=== PATIENT | male | born 1955 | race Two or more races ===

== ENCOUNTER 2025-03-13 11:00 | Inpatient (IN) | payer OTHER ==
[~2025-03-13] VITALS: Ht 175.3 cm; Wt 77.1 kg
[2025-03-13 13:01] VITALS: BP 119/74
[2025-03-21] MEDS ORDERED: METRONIDAZOLE/SODIUM CHLORIDE 500 MG/100 ML PIGGYBACK IV ONE (09:07)
[2025-03-21] MEDS ORDERED: CEFTRIAXONE SODIUM 2,000 MG VIAL ONE (09:07)
[2025-03-21] MEDS ORDERED: BUPIVACAINE HCL/MPF 0.5% 30ML VIAL ONE (15:27)
[2025-03-21] MEDS ORDERED: LIDOCAINE HCL 1%/EPINEPHRINE 20ML VIAL IJ ONE (15:28)
[2025-03-21] MEDS ORDERED: 0.9 % SODIUM CHLORIDE 1,000 ML IV SCH (17:00)
[2025-03-21] MEDS ORDERED: OxyCODONE HCL 5 MG TABLET (ROXICODONE) PO PRN (17:00)
[2025-03-21] MEDS ORDERED: POLYETHYLENE GLYCOL 3350 17 GM BLIST.PACK PO SCH (17:00)
[2025-03-21] MEDS ORDERED: DEXTROSE 50 % IN WATER 0.5 G/ML VIAL IV PRN (17:00)
[2025-03-21] MEDS ORDERED: GABAPENTIN 300 MG CAPSULE PO SCH (17:00)
[2025-03-21] MEDS ORDERED: METRONIDAZOLE/SODIUM CHLORIDE 500 MG/100 ML PIGGYBACK IV SCH (17:00)
[2025-03-21] MEDS ORDERED: HYOSCYAMINE SULFATE 0.125 MG TAB.SUBL SL SCH (17:00)
[2025-03-21] MEDS ORDERED: ONDANSETRON HCL 2 MG/ML VIAL IV PRN (17:00)
[2025-03-21] MEDS ORDERED: MORPHINE SULFATE 4 MG/ML CARTRIDGE IV PRN (17:00)
[2025-03-21] MEDS ORDERED: SUGAMMADEX SODIUM 200 MG/2 ML VIAL IV ONE (18:59)
[2025-03-21] MEDS ORDERED: ACETAMINOPHEN 500 MG GEL..CAP PO SCH (20:00)
[2025-03-21] MEDS ORDERED: FAMOTIDINE/PF 20 MG/2 ML VIAL IV PUSH SCH (21:00)
[2025-03-21] MEDS ORDERED: CELECOXIB 200 MG CAPSULE PO SCH (21:00)
[2025-03-21] MEDS ORDERED: MORPHINE SULFATE 4 MG/ML VIAL IV ONE ×2 (21:05→21:35)
[2025-03-21 22:17] VITALS: BP 138/69; O2SAT 97
[2025-03-21 22:36] LABS: BASO % 0.1 % (0.1-1.2); HEMATOCRIT 39.7 % (40.1-51.0); HEMOGLOBIN 13.1 g/dL (13.7-17.5); LYMPH # 0.76 (1.18-3.74); LYMPH % 5.6 % (19.3-53.1); MEAN CORPUSCULAR HEMOGLOBIN 27.3 pg (25.6-32.2); MONO # 0.92 (0.24-0.82); MONO % 6.8 % (4.7-12.5); NEUT # 11.82 (1.56-6.13); NEUT % 87.1 % (34.0-71.1); PLATELET COUNT 285 K/uL (163-369); RED CELL DISTRIBUTION WIDTH 15.3 % (11.6-14.4)
[2025-03-21 22:49] LABS: ALBUMIN 3.3 gm/dL (3.4-5.0); CALCIUM 8.4 mg/dL (8.5-10.1); CREATININE SERUM 0.78 mg/dL (0.70-1.30); GFR 98.98; MAGNESIUM 1.8 mg/dL (1.8-2.4); PHOSPHOROUS 3.5 mg/dL (2.5-4.9); POTASSIUM 4.1 mEq/L (3.5-5.1)
[2025-03-22] VITALS: BP 134/63; O2SAT 97
[2025-03-22 06:54] LABS: ALBUMIN 3.1 gm/dL (3.4-5.0); CALCIUM 8.5 mg/dL (8.5-10.1); CREATININE SERUM 0.73 mg/dL (0.70-1.30); GFR 106.84; MAGNESIUM 1.8 mg/dL (1.8-2.4); POTASSIUM 4.37 mEq/L (3.5-5.1)
[2025-03-22 07:08] LABS: BASO % 0.1 % (0.1-1.2); HEMATOCRIT 37.2 % (40.1-51.0); HEMOGLOBIN 12.3 g/dL (13.7-17.5); LYMPH # 0.96 (1.18-3.74); LYMPH % 6.7 % (19.3-53.1); MEAN CORPUSCULAR HEMOGLOBIN 27.4 pg (25.6-32.2); MONO # 1.13 (0.24-0.82); MONO % 7.8 % (4.7-12.5); NEUT # 12.27 (1.56-6.13); NEUT % 85.1 % (34.0-71.1); PLATELET COUNT 277 K/uL (163-369); RED BLOOD COUNT 4.49 M/uL (4.63-6.08); RED CELL DISTRIBUTION WIDTH 15.6 % (11.6-14.4)
[2025-03-22 08:00] VITALS: BP 131/65; O2SAT 96
[2025-03-22] MEDS ORDERED: ENOXAPARIN SODIUM 40 MG/0.4 ML SYRINGE SUBCUTANEO SCH (17:00)
[2025-03-22 21:21] VITALS: BP 96/51; O2SAT 98
[2025-03-23 01:03] VITALS: BP 122/67; O2SAT 97
[2025-03-23 08:29] VITALS: BP 113/71; O2SAT 96
[2025-03-23] MEDS ORDERED: ENOXAPARIN SODIUM 40 MG/0.4 ML SYRINGE SUBCUTANEO SCH (09:00)
[2025-03-23] MEDS ORDERED: HYOSCYAMINE SULFATE 0.125 MG TAB.SUBL SL PRN (15:47)
[2025-03-23 16:00] VITALS: BP 110/69; O2SAT 98
[2025-03-23] MEDS ORDERED: SIMETHICONE 125 MG CAPSULE PO SCH (17:00)
[2025-03-24 00:52] VITALS: BP 137/81; O2SAT 100
[2025-03-24 07:30] LABS: CALCIUM 8.8 mg/dL (8.5-10.1); CREATININE SERUM 0.52 mg/dL (0.70-1.30); GFR 158.04; POTASSIUM 3.46 mEq/L (3.5-5.1)
[2025-03-24 08:14] LABS: BASO % 0.3 % (0.1-1.2); EOS # 0.18 (0.04-0.54); EOS % 1.7 % (0.7-7.0); HEMOGLOBIN 10.7 g/dL (13.7-17.5); LYMPH # 0.96 (1.18-3.74); LYMPH % 9.2 % (19.3-53.1); MEAN CORPUSCULAR HEMOGLOBIN 27.3 pg (25.6-32.2); MONO # 0.86 (0.24-0.82); MONO % 8.2 % (4.7-12.5); NEUT % 80.2 % (34.0-71.1); PLATELET COUNT 256 K/uL (163-369); RED BLOOD COUNT 3.92 M/uL (4.63-6.08); RED CELL DISTRIBUTION WIDTH 15.4 % (11.6-14.4)
[2025-03-24 08:18] VITALS: BP 108/70; O2SAT 96
[2025-03-24] MEDS ORDERED: POTASSIUM CHLORIDE 10 MEQ CAPSULE PO SCH (13:00)
[2025-03-24 16:00] VITALS: BP 104/66; O2SAT 97
[2025-03-25 00:14] VITALS: BP 109/73; O2SAT 99
[2025-03-25 06:16] LABS: BASO % 0.5 % (0.1-1.2); EOS # 0.72 (0.04-0.54); EOS % 6.8 % (0.7-7.0); HEMATOCRIT 30.2 % (40.1-51.0); HEMOGLOBIN 10.3 g/dL (13.7-17.5); LYMPH # 1.43 (1.18-3.74); LYMPH % 13.6 % (19.3-53.1); MEAN CORPUSCULAR HEMOGLOBIN 27.8 pg (25.6-32.2); MONO # 0.92 (0.24-0.82); MONO % 8.7 % (4.7-12.5); NEUT # 7.37 (1.56-6.13); PLATELET COUNT 273 K/uL (163-369)
[2025-03-25 06:57] LABS: CALCIUM 8.7 mg/dL (8.5-10.1); CREATININE SERUM 0.53 mg/dL (0.70-1.30); GFR 154.6; MAGNESIUM 1.8 mg/dL (1.8-2.4); PHOSPHOROUS 3.7 mg/dL (2.5-4.9); POTASSIUM 3.91 mEq/L (3.5-5.1)
[2025-03-25 08:47] VITALS: BP 132/73; O2SAT 98
[2025-03-25 16:00] VITALS: BP 138/58; O2SAT 99
[2025-03-26 00:39] VITALS: BP 118/68; O2SAT 96
[2025-03-26 08:59] VITALS: BP 123/66; O2SAT 97
[2025-03-26 14:00] VITALS: BP 123/61; O2SAT 98
[2025-03-27 00:28] VITALS: BP 118/74; O2SAT 97
[2025-03-27 08:00] VITALS: BP 125/68; O2SAT 97
[2025-03-27] MEDS ORDERED: HYOSCYAMINE0.125 M1 SL (08:02)
[2025-03-27] MEDS ORDERED: PEPCID AC20 MG PO (08:02)
[2025-03-27] MEDS ORDERED: TRAM1TAB98 PO (08:03)
[2025-03-27] MEDS ORDERED: ZOFRAN8 MG PO (08:03)
== END 2025-03-27 13:12 | disposition home or self-care (01) | DRG 330 ==
LOC: SURH 03-21 07:00 → O/R 03-21 08:33 → SURH 03-21 08:33
PROVIDERS: Internal Medicine; ADMIT Surgery; ATTEND Surgery
PROC: 07BB0ZZ Excision of Mesenteric Lymphatic, Open Approach (ICD-10-PCS; 2025-03-21)
PROC: 0DBU0ZZ Excision of Omentum, Open Approach (ICD-10-PCS; 2025-03-21)
PROC: 0DJD4ZZ Inspection of Lower Intestinal Tract, Percutaneous Endoscopic Approach (ICD-10-PCS; 2025-03-21)
PROC: 0DTG0ZZ Resection of Left Large Intestine, Open Approach (ICD-10-PCS; principal; 2025-03-21 07:00)
DX: C18.6 Malignant neoplasm of descending colon (principal); C20 Malignant neoplasm of rectum; D12.3 Benign neoplasm of transverse colon; R59.0 Localized enlarged lymph nodes; K66.0 Peritoneal adhesions (postprocedural) (postinfection); Z53.31 Laparoscopic surgical procedure converted to open procedure; E87.6 Hypokalemia

== ENCOUNTER 2025-05-21 09:31 | Inpatient (IN) | payer OTHER ==
[~2025-05-21] VITALS: Ht 175.3 cm; Wt 68.0 kg
[~2025-05-21 09:31] MED LIST: HYOSCYAMINE0.125 M1 SL; PEPCID AC20 MG PO; TRAM1TAB98 PO; ZOFRAN8 MG PO
[2025-05-21] MEDS ORDERED: FAMOtidine 10 MG/ML (4ML VIAL) IV ONE (10:15)
[2025-05-21] MEDS ORDERED: PIPERACILLIN/TAZOBACTAM SODIUM 3.375 GM VIAL IV ONE (10:15)
[2025-05-21] MEDS ORDERED: 0.9 % SODIUM CHLORIDE 1,000 ML IV ONE (10:15)
[2025-05-21 11:30] LABS: BASO % 0.4 % (0.1-1.2); EOS # 0.11 (0.04-0.54); EOS % 0.8 % (0.7-7.0); LYMPH # 2.42 (1.18-3.74); LYMPH % 17.9 % (19.3-53.1); MEAN PLATELET VOLUME 9.60 fl (9.4-12.4); MONO # 0.58 (0.24-0.82); MONO % 4.3 % (4.7-12.5); NEUT # 10.29 (1.56-6.13); NEUT % 76.3 % (34.0-71.1); RED CELL DISTRIBUTION WIDTH 16.5 % (11.6-14.4)
[2025-05-21 11:33] LABS: ERYTHROCYTE SEDIMENTATION RATE 73 mm/hr (0-20)
[2025-05-21 11:50] LABS: INR 1.04
[2025-05-21 12:01] LABS: URINE APPEARANCE Clear; URINE BILIRRUBIN Negative (NEGATIVE); URINE BLOOD Negative; URINE COLOR Yellow; URINE GLUCOSE Negative (NEGATIVE); URINE KETONE Trace (NEGATIVE); URINE LEUKOCYTE Negative; URINE NITRATE Negative; URINE PROTEIN Trace (NEGATIVE); URINE UROBILINOGEN 0.2 E.U./dl
[2025-05-21 12:02] LABS: URINE BACTERIA 9.5 uL (0.0-1933); URINE EPITHELIAL CELLS 4.9 uL (0.0-38.8); URINE RBC 4.8 uL (0.0-20.8); URINE WBC 5.3 uL (0.0-23.2)
[2025-05-21 12:18] LABS: URINE CAST 1.02 uL (0.0-1.40)
[2025-05-21 12:25] LABS: ALT/SGPT 61.0 U/L (12-78); AST/SGOT 26.0 U/L (15-37); BILIRUBIN TOTAL 0.23 mg/dL (0.3-1.2); BUN CREA RATIO 14.0 (7.0-25.0); CREATININE SERUM 0.85 mg/dL (0.70-1.30); GFR 89.63; GLOBULINA 4.7 G/DL (2.4-3.5); GLUCOSE FASTING 107.0 mg/dL (65-100); OSMOLALITY SERUM 281.0 MOSM/KG (275-295)
[2025-05-21] MEDS ORDERED: PANTOPRAZOLE SODIUM 40 MG/VIAL VIAL IV SCH (14:33)
[2025-05-21] MEDS ORDERED: ONDANSETRON HCL 4 MG in 0.9 % SODIUM CHLORIDE 50 ML IV PRN (14:45)
[2025-05-21] MEDS ORDERED: 0.9 % SODIUM CHLORIDE 1,000 ML IV SCH (15:45)
[2025-05-21] MEDS ORDERED: ONDANSETRON HCL 2 MG/ML VIAL IV PRN (15:45)
[2025-05-21 15:52] VITALS: BP 133/72; O2SAT 100
[2025-05-21 17:00] VITALS: BP 138/70; O2SAT 98
[2025-05-21] MEDS ORDERED: GABAPENTIN 300 MG CAPSULE PO SCH (17:00)
[2025-05-21] MEDS ORDERED: ACETAMINOPHEN 500 MG GEL..CAP PO SCH (18:00)
[2025-05-21] MEDS ORDERED: PIPERACILLIN/TAZOBACTAM SODIUM 3.375 GM in 0.9 % SODIUM CHLORIDE 100 ML IV SCH (18:00)
[2025-05-22 01:02] VITALS: BP 101/46; O2SAT 100
[2025-05-22 07:11] LABS: BASO % 0.7 % (0.1-1.2); EOS # 0.30 (0.04-0.54); EOS % 4.3 % (0.7-7.0); LYMPH # 2.26 (1.18-3.74); LYMPH % 32.4 % (19.3-53.1); MEAN PLATELET VOLUME 10.10 fl (9.4-12.4); MONO # 0.65 (0.24-0.82); MONO % 9.3 % (4.7-12.5); NEUT # 3.68 (1.56-6.13); NEUT % 52.9 % (34.0-71.1); RED CELL DISTRIBUTION WIDTH 16.7 % (11.6-14.4)
[2025-05-22 07:29] LABS: ALT/SGPT 40.0 U/L (12-78); AST/SGOT 16.0 U/L (15-37); BILIRUBIN TOTAL 0.3 mg/dL (0.3-1.2); BUN CREA RATIO 11.0 (7.0-25.0); CREATININE SERUM 0.76 mg/dL (0.70-1.30); GFR 101.99; GLOBULINA 3.7 G/DL (2.4-3.5); GLUCOSE FASTING 93.0 mg/dL (65-100); OSMOLALITY SERUM 283.0 MOSM/KG (275-295)
[2025-05-22] MEDS ORDERED: ENOXAPARIN SODIUM 40 MG/0.4 ML SYRINGE SUBCUTANEO SCH (09:00)
[2025-05-22 12:33] VITALS: BP 113/68; O2SAT 99
[2025-05-22] MEDS ORDERED: POLYETHYLENE GLYCOL 3350 17 GM BLIST.PACK PO SCH (17:00)
[2025-05-22 20:41] VITALS: BP 89/54; O2SAT 99
[2025-05-23 02:27] VITALS: BP 103/58; O2SAT 100
[2025-05-23 08:00] VITALS: BP 90/60; O2SAT 99
[2025-05-23] MEDS ORDERED: LACTOBACILLUS ACIDOPHILUS 1 CAP CAP PO SCH (09:00)
[2025-05-23] MEDS ORDERED: DIBUCAINE 30 GM TUBE RECTAL SCH (13:00)
[2025-05-23 16:00] VITALS: BP 100/52; O2SAT 100
[2025-05-24 01:08] VITALS: BP 103/52; O2SAT 98
[2025-05-24 08:00] VITALS: BP 123/67; O2SAT 99
[2025-05-24 17:16] VITALS: BP 116/68; O2SAT 96
[2025-05-25 01:42] VITALS: BP 131/72; O2SAT 100
[2025-05-25 08:00] VITALS: BP 112/65; O2SAT 100
[2025-05-25 16:00] VITALS: BP 130/71; O2SAT 99
[2025-05-26 01:39] VITALS: BP 118/73; O2SAT 100
[2025-05-26 08:00] VITALS: BP 117/68; O2SAT 98
[2025-05-26 16:00] VITALS: BP 105/56; O2SAT 99
[2025-05-27 01:06] VITALS: BP 138/76; O2SAT 100
[2025-05-27 07:23] LABS: ALT/SGPT 35 U/L (12-78); AST/SGOT 20 U/L (15-37); BILIRUBIN TOTAL 0.14 mg/dL (0.3-1.2); BUN CREA RATIO 14 (7.0-25.0); CREATININE SERUM 0.78 mg/dL (0.70-1.30); GFR 98.98; GLOBULINA 3.6 G/DL (2.4-3.5); GLUCOSE FASTING 96 mg/dL (65-100); OSMOLALITY SERUM 286 MOSM/KG (275-295)
[2025-05-27 07:50] LABS: BASO % 0.5 % (0.1-1.2); EOS # 0.29 (0.04-0.54); EOS % 3.9 % (0.7-7.0); LYMPH # 2.03 (1.18-3.74); LYMPH % 27.6 % (19.3-53.1); MEAN PLATELET VOLUME 10.20 fl (9.4-12.4); MONO # 0.49 (0.24-0.82); MONO % 6.7 % (4.7-12.5); NEUT # 4.48 (1.56-6.13); NEUT % 61.0 % (34.0-71.1); RED CELL DISTRIBUTION WIDTH 17.1 % (11.6-14.4)
[2025-05-27 08:15] VITALS: BP 126/67; O2SAT 100
[2025-05-27 09:41] LABS: ERYTHROCYTE SEDIMENTATION RATE 87 mm/hr (0-20)
[2025-05-27 16:50] VITALS: BP 148/73; O2SAT 100
[2025-05-28 00:48] VITALS: BP 111/57; O2SAT 96
[2025-05-28 08:48] VITALS: BP 124/63; O2SAT 100
[2025-05-28 17:07] VITALS: BP 134/74; O2SAT 99
[2025-05-29 01:19] VITALS: BP 119/72; O2SAT 99
[2025-05-29 08:00] VITALS: BP 122/62; O2SAT 99
[2025-05-29] MEDS ORDERED: INTEGRA F CAPS1 EACH PO (08:22)
[2025-05-29] MEDS ORDERED: AMOX1TAB5 PO (08:22)
[2025-05-29] MEDS ORDERED: PEPCID AC20 MG PO (08:23)
== END 2025-05-29 16:42 | disposition home or self-care (01) | DRG 603 ==
LOC: ER 09:31 → SEC-K 14:44 → SURH 14:44
PROVIDERS: General Practice; Internal Medicine; ADMIT Surgery; ATTEND Surgery
PROC: BW21YZZ Computerized Tomography (CT Scan) of Abdomen and Pelvis using Other Contrast (ICD-10-PCS; principal; 2025-05-21)
DX: L02.211 Cutaneous abscess of abdominal wall (principal); L03.311 Cellulitis of abdominal wall; B96.20 Unspecified Escherichia coli [E. coli] as the cause of diseases classified elsewhere; E78.5 Hyperlipidemia, unspecified